=== PATIENT | male | born 1955 | race Caucasian/White ===

== ENCOUNTER 2017-03-21 12:12 | Observation (INO) | payer OTHER ==
[~2017-03-21] VITALS: Ht 180.3 cm; Wt 77.6 kg
[~2017-03-21 12:12] MED LIST: ASPI81TA2 PO; ATEN100T4 PO; FAMO20TA PO; FELO10TA34 PO; FLC50T PO; HYDR25TA4 PO; LISI10TA PO; NAPR220C11 PO
[2017-03-21 12:15] VITALS: BP 181/113; PULSE 63; RESP 16; O2SAT 98
[2017-03-21 12:45] VITALS: BP 165/98; PULSE 86; RESP 17; O2SAT 96
--- NOTE | 2017-03-21 12:51 | ED.REPORT ---
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 The patient also reports intermittent chest pressure that developed today, rated 9/10 on arrival. Associated symptoms include weakness, fatigue, dizziness, nausea, and SOB. He denies other symptoms. The patient has had similar symptoms in the past. Nursing Notes Stated Complaint: HEART ISSUE Chief Complaint: Dysrhythmia/Cardiac Nursing Notes Reviewed: Yes Allergies: Coded Allergies: No Known Allergies (Verified , 09/09/13) Scheduled Aspirin (Aspirin) 81 Mg Tablet 81 MG PO QAM Atenolol (Atenolol) 100 Mg Tablet 100 MG PO QAM Atorvastatin (Lipitor) 20 Mg Tablet 20 MG PO DAILY Flecainide Acetate (Flecainide Acetate) 100 Mg Tablet 100 MG PO BID Gabapentin (Gabapentin) 300 Mg Capsule 300 MG PO TID Lisinopril / HCTZ 20-25 mg (Lisinopril / HCTZ 20-25 mg) 1 Each Tablet 1 TAB PO DAILY Scheduled PRN Sildenafil Citrate (Viagra) 50 Mg Tablet 1 TAB PO DAILY PRN PRN ERECTILE DYSFUNCTION General Time Seen by MD: 12:51 Chief Complaint Other (Atrial Flutter) Hx Obtained From: Patient Arrived By: Walk-in Sudden in Onset?: Yes Onset Occurred: 2 days ago Symptom Duration: Since onset Location: : Chest left: Chest right Quality: Painful, Pressure Severity: Current: Moderate Severity: Maximum: Moderate Pertinent Negative: Relieved by nothing Context Related History: Reports: Arrhythmia, Hypertension Recent Healthcare: No recent doctor visit Similar Sx Previous: Yes Past Medical History Past Medical History 1. History of cavotricuspid isthmus dependent atrial flutter with radiofrequency ablation in 2008. Subsequent study on June 30, 2012, was inconclusive, but was repeated after patient was off beta blockers and was repeated on September 15, 2012. At that time, the supraventricular tachycardia was unable to be induced, and at that time, the plan was to get a stress test and then start patient on flecainide if that was low risk, which it was, and the patient was started on flecainide. The patient had a myocardial perfusion scan on August 21, 2012, which was unrevealing, and an unremarkable echo on June 30, 2012. 2. Hypertension. 3. Obstructive sleep apnea, on CPAP. 4. Hyperlipidemia Past Surgical History Appendectomy Right wrist and shoulder surgeries in the past. Smoking History Unknown if Ever Smoker Social History Patient drinks heavily approximately once a month Other Social History: Good social support Ambulatory Status Independent Review of Systems Review of Systems Note: + Atrial flutter Constitutional: Reports: Fatigue, Weakness - generalized Respiratory: Reports: Shortness of breath, Denies: Non-productive cough Cardiovascular: Reports: Chest pain (Pressure) GI: Reports: Nausea, Denies: Diarrhea, Vomiting Neurologic: Reports: Dizziness Complete sys rev & neg: except as marked. Physical Exam Initial Vital Signs Vital Signs (First) Date Time Temp Pulse Resp B/P Pulse Ox O2 Delivery O2 Flow Rate FiO2 03/21/17 12:15 36.6 63 16 181/113 98 Room Air 03/21/17 12:45 Initial VS: Reviewed Head / Eyes: Atraumatic, Normocephalic ENT: Conjunctiva normal, No scleral icterus Neck: Supple, Full range of motion Skin: Warm, Dry, No cyanosis Neurologic: Alert, Oriented, Nonfocal Psychiatric: Mood/affect normal, Behavior normal, Normal thought content General/Constitutional: Awake, Alert Respiratory / Chest: Breath sounds NL, Breath sounds = bilat, No respiratory distress Cardiovascular: Heart rate NL, Heart sounds NL Heart Rate / Rhythm: Positive: Irregular rhythm Abdomen: Soft, Non-tender Interpretation & Diagnostics Lab Results Interpretation Result Diagram: 03/21/17 1233 03/21/17 1233 Test 03/21/17 12:33 White Blood Count 11.1th/mm3 (3.8-10.1) Red Blood Count 5.89mil/mm3 (4.40-5.80) Hemoglobin 17.7g/dL (13.8-17.2) Hematocrit 51.8% (41.0-50.0) Mean Corpuscular Volume 87.9fL (81-100) Mean Corpuscular Hemoglobin 30.1pg (27.0-35.0) Mean Corpuscular Hemoglobin Concent 34.2% (32.0-37.0) Red Cell Distribution Width 14.4% (12.3-15.4) Platelet Count 254bil/L (150-400) Neutrophils (%) (Auto) 75.3% (40-74) Lymphocytes (%) (Auto) 15.7% (14-46) Monocytes (%) (Auto) 6.2% (4-12) Eosinophils (%) (Auto) 2.0% (0-5) Basophils (%) (Auto) 0.5% (0-3) Urine Color Dark yellow (YELLOW) Urine Appearance Clear (CLEAR,HAZY) Urine pH 6.0 (5.0-8.0) Urine Specific Prole 1.025 (1.003-1.035) Urine Protein 30mg/dL (NEG,TRACE) Urine Glucose (UA) Negativemg/dL (NEGATIVE) Urine Ketones Negativemg/dL (NEGATIVE) Urine Occult Blood Negative (NEGATIVE) Urine Nitrite Negative (NEGATIVE) Urine Bilirubin Negative (NEGATIVE) Urine Urobilinogen Normalmg/dL (NORMAL) Urine Leukocyte Esterase Negative (NEGATIVE) Urine RBC 0-2/hpf (0-2) Urine WBC 0-5/hpf (0-5) Urine Epithelial Cells Occasional/hpf (NONE-MOD) Urine Crystals Oxalic acid crystals (NONE Urine Bacteria None/hpf (NONE-FEW) Urine Hyaline Casts Occasional/lpf (NONE) Urine Granular Casts Occasional (NONE SEEN) Urine Waxy Casts None seen (NONE SEEN) Urine Red Blood Cell Casts None seen (NONE SEEN) Urine White Blood Cell Casts None seen (NONE SEEN) Urine Mucus Present (None Seen) Urine Trichomonas None seen (NONE SEEN) Urine Yeast None (NONE SEEN) Urinalysis Comment None Urine Culture Reflexed Not indicated Hold Urine Received (Received) Sodium Level 139mEq/L (134-144) Potassium Level 4.2mEq/L (3.5-5.2) Chloride Level 103mEq/L (97-108) Carbon Dioxide Level 21mmol/L (18-29) Blood Urea Nitrogen 23mg/dL (8-27) Creatinine 0.85mg/dL (0.76-1.27) Estimat Glomerular Filtration Rate 97mL/min (>59) Glucose Level 108mg/dL (60-99) Calcium Level 9.5mg/dL (8.5-10.1) Magnesium Level 2.1mg/dL (1.6-2.6) Total Bilirubin 0.6mg/dL (0.0-1.2) Aspartate Amino Transf (AST/SGOT) 23U/L (0-50) Alanine Aminotransferase (ALT/SGPT) 20U/L (0-44) Alkaline Phosphatase 81U/L (25-160) Total Protein 7.4g/dL (6.4-8.4) Albumin 4.3g/dL (3.4-5.0) Alcohols < 10mg/dL (0-10) ECG Interpretation ECG Interpretation: Atrial fibrillation rate 85 Time: 12:29 Interpreted by: ED physician ECG Interpretation: Atrial flutter rate 91 Patient is now pain free Time: 13:05 Interpreted by: ED physician X-Ray Chest Interpretation Chest Xray Interpretation: IMPRESSION: No acute cardiopulmonary abnormality Dictated by: Romulo Case M.D. on 03/21/2017 at 13:12 View: Portable, 1 view Interpretation / Wet Read by: Interpret - Radiologist Re-Eval/Medical Decision Med Decision/Clinical Course 61-year-old male history of atrial flutter status post ablation, atrial fibrillation, hypertension, hyperlipidemia presenting with 2 days of feeling like he is in atrial flutter. He had some alcohol several days ago and has felt like this ever since. He is not on chronic anticoagulation. Arrival he is in atrial fibrillation rate controlled. On arrival he started complaining of 9 of 10 substernal chest pain which resolved with nitroglycerin. Discussed with cardiology who saw the patient recommended admission. Given aspirin. Admit, trend EKGs and troponins. Follow-up cardiology recs. Source of Hx: Old records Time of Eval: 15:05 Patient Status: Condition improved Re-Evaluation/Progress Note: Discussed with patient x-ray and lab results, diagnosis, and plan for admit. Patient agrees with plan for care and all questions were addressed. Consultation #1: Referral / Consult Name: Miri Lainez MD Consulted With: Cardiology Call Returned at: 13:37 Mobile Game Engineer: Will see patient, Agrees with eval, Agrees with plan Consultation #2: Referral / Consult Name: Miri Lainez MD Consulted With: Cardiology Call Returned at: 14:15 Mobile Game Engineer: Agrees with eval, Agrees with plan Note: Recommends admit. Consultation #3: Referral / Consult Name: Lars Pierson DO Consulted With: Hospitalist Call Returned at: 15:13 Mobile Game Engineer: Agrees with eval, Agrees with plan, Accepts admit Counseled Regarding: Diagnosis, Lab results, Need for admission Discharge & Departure Primary Impression: Chest pain Chest pain type: chest pain due to myocardial ischemia Ischemic chest pain type: unstable angina pectoris Qualified Code: I20.0 - Unstable angina Additional Impression: Atrial fibrillation Atrial fibrillation type: paroxysmal Qualified Code: I48.0 - Paroxysmal atrial fibrillation Disposition: ADMITTED TO HOSPITAL Discharge Condition All VS Reviewed: Yes Condition: Improved Referrals: OTHER,PHYSICIAN (PCP) Crit Care Except Billable Proc Time Spent: 30-74 minutes (40) Services Performed: Patient management by me, Time spent at bedside, Reviewing test results, Reviewing imaging, Discussing patient care, Documentation in record Scribe Attestation Portions of this note were transcribed by Beti Avila. I, Dr. Robertson, personally performed the history, physical exam, and medical decision-making; I reviewed and confirmed the accuracy of the information in the transcribed note. Signed by: Anita Alejandra, 03/21/2017, 15:18 Garrison Robertson MD March 21, 2017 12:51 BETI AVILA March 21, 2017 13:05
[2017-03-21 12:55] LABS: BASOPHILS % (AUTO) 0.5 % (0-3); MONOCYTES % (AUTO) 6.2 % (4-12); Mean Corpuscular Hemoglobin 30.1 pg (27.0-35.0); Mean Corpuscular Volume 87.9 fL (81-100); NEUTROPHILS % (AUTO) 75.3 % (40-74); Platelet Count 254 bil/L (150-400)
[2017-03-21] MEDS ORDERED: Ondansetron 2 mg/mL 2 mL Inj ONE (12:56)
[2017-03-21] MEDS ORDERED: Nitroglycerin 2% 1 Gm Ointment TOPICAL ONE ×2 (12:56→14:10)
--- NOTE | 2017-03-21 13:15 | DRSVH ---
PROCEDURE: X-RAY CHEST ONE VIEW, PORTABLE ([id number]) INDICATIONS: chest pain TECHNIQUE: One view of the chest was acquired. COMPARISON: 12/20/2016 FINDINGS: Surgical changes and devices: None. Lungs and pleura: No pleural effusions or pneumothorax. Lungs are clear. Mediastinum: Mediastinal contours appear normal. Heart size is normal. Bones and chest wall: No suspicious bony lesions. Overlying soft tissues appear unremarkable. IMPRESSION: No acute cardiopulmonary abnormality Dictated by: Romulo Case M.D. on 03/21/2017 at 13:12 Approved by: Romulo Case M.D. on 03/21/2017 at 13:13
[2017-03-21 13:21] LABS: TROPONIN T < 0.010 ug/L (0.0-0.011)
[2017-03-21 13:29] LABS: Magnesium 2.1 mg/dL (1.6-2.6)
[2017-03-21 13:30] VITALS: BP 115/89; PULSE 80; RESP 16; O2SAT 96
[2017-03-21] MEDS ORDERED: ATOR20TA PO (13:43)
[2017-03-21] MEDS ORDERED: GABA-502 PO (13:43)
[2017-03-21] MEDS ORDERED: SILD50TA PO (13:43)
[2017-03-21] MEDS ORDERED: LISI1TAB11 PO (13:43)
[2017-03-21] MEDS ORDERED: Ondansetron 2 mg/mL 2 mL Inj IVPUSH ONE (14:10)
[2017-03-21] MEDS ORDERED: ASPI-973 PO (15:00)
[2017-03-21] MEDS ORDERED: FLEC100T2 PO (15:00)
[2017-03-21] MEDS ORDERED: ATEN100T PO (15:00)
[2017-03-21] MEDS ORDERED: Alum-Mag Hydrox-Simeth 30 mL Suspension PO PRN ×2 (15:20→15:35)
[2017-03-21] MEDS ORDERED: Ondansetron 2 mg/mL 2 mL Inj IVPUSH PRN (15:20)
[2017-03-21 15:33] LABS: APPEARANCE,URINE CLEAR (CLEAR,HAZY); COLOR,URINE DARK YELLOW (YELLOW)
[2017-03-21 15:34] LABS: OCCULT BLOOD,URINE NEGATIVE (NEGATIVE); UROBILINOGEN,URINE NORMAL (NORMAL)
--- NOTE | 2017-03-21 15:34 | PCM.HPMED ---
Subjective Date of Service March 21, 2017 Primary Provider: Admitting Physician: Primary Care Physician: Other,Physician Attending Physician: Chief Complaint: Chest pressure and palpitations History of Present Illness: Patient is 59-year-old male past medical history significant for arrhythmia typically atrial flutter status post 1 lesion managed on chronic flecainide therapy in addition to hyperlipidemia hypertension tobacco dependence, presenting to the ER earlier today for greater than 24 hour history of chest palpitations and tightness which he notes in the past have been consistent with an irregular rhythm or flutter pattern. Probably confirm that he was in irregularly irregular rhythm at this time atrial fibrillation, albeit in regular rate. Patient's chest pressure however was concerning especially given cardiac history and risk factors, and so cap inspector Dr. Lainez was consulted and evaluated patient in emergency department. Due to persistent arrhythmia it was thought prudent to bring patient in the hospital for further observation and evaluation of underlying conditions. Recent history includes only 2 drinks earlier on which he notes he does approximately once a month when visiting a friend, this consists of one beer one tequila he denies drinking to excess and states she drank no alcohol prior to or after this. This is generally not an issue during his done so for many years and certainly has not caused this condition in the past. Denies any shortness of breath currently and chest pressure has been resolved with the addition of nitroglycerin glycerin which is right in emergency department denies any sweats or chills at this time. Chest pressure was localized over the sternal region but did not radiate. He additionally denies any dizziness or blurred vision or lightheadedness. Says he was nauseated earlier in the day but now is feeling more hungry. Denies any episodes of emesis. No other acute complaints at this time. Review of Systems: 10 point review of systems was conducted and entirely negative excepting pertinent positives and negatives included above history of present illness Allergies Coded Allergies: No Known Allergies (Verified , 09/09/13) Home Medications Aspirin (Aspirin) 81 Mg Tablet 81 MG PO QAM Atenolol (Atenolol) 100 Mg Tablet 100 MG PO QAM Atorvastatin (Lipitor) 20 Mg Tablet 20 MG PO DAILY Flecainide Acetate (Flecainide Acetate) 100 Mg Tablet 100 MG PO BID Gabapentin (Gabapentin) 300 Mg Capsule 300 MG PO TID Lisinopril / HCTZ 20-25 mg (Lisinopril / HCTZ 20-25 mg) 1 Each Tablet 1 TAB PO DAILY Scheduled PRN Sildenafil Citrate (Viagra) 50 Mg Tablet 1 TAB PO DAILY PRN PRN ERECTILE DYSFUNCTION PMH 1. History of cavotricuspid isthmus dependent atrial flutter with radiofrequency ablation in 2008. Subsequent study on June 30, 2012, was inconclusive, but was repeated after patient was off beta blockers and repeated on September 15, 2012. At that time, the supraventricular tachycardia was unable to be induced, and at that time, the plan was to get a stress test and then start patient on flecainide if that was low risk, which it was, and the patient was started on flecainide. The patient had a myocardial perfusion scan on August 21, 2012, which was unrevealing, and an unremarkable echo on June 30, 2012. 2. Hypertension. 3. Obstructive sleep apnea, on CPAP. 4. Hyperlipidemia Surgical History Appendectomy Right wrist and shoulder surgeries in the past. Hernia repair, inguinal right-sided. Family History Denies any significant family history of arrhythmia Social History Hx Alcohol Use: Yes (beer occ.) Hx Substance Use: No Hx Tobacco Use: Yes Smoking Status: Unknown if Ever Smoker Exam Vital Signs Vital Sign - Last Date Time Temp Pulse Resp B/P Pulse Ox O2 Delivery O2 Flow Rate FiO2 03/21/17 13:30 80 16 115/89 96 03/21/17 12:15 36.6 General: Alert, Oriented X3, Cooperative, No Acute Distress Eyes: PERRLA, EOMI Mouth: Mucous Membr Moist/[place] Neck: Supple, Other (no JVD) Chest & Lungs: Clear to auscultation & percussion Cardiovascular: Other (irregular rhythm with a regular rate. No murmurs rubs or gallops auscultated) Abdomen: Non-tender, Non-distended Extremities: No cyanosis/clubbing/edma bilat Skin: Other (his stain by oil with multiple abrasions) Neurological: Grossly Neurologically Intact Lab and Diagnostics Result Diagram: 03/21/17 1233 03/21/17 1233 Assessment & Plan 61-year-old male past medical history significant for atrial flutter typically well controlled with flecainide, presenting following an episode of acute chest pain in the setting of alcohol binge currently resolved in stable condition admitted for further evaluation as per cardiology recommendation. 1. Chest pain - Patient has known cardiac disease, but negative troponin and stable EKG speaks against an acute coronary process - Nonetheless given risk factors and recommendations of on-call cap inspector, Dr. Lainez, patient will be admitted for further evaluation at this time - Plan to continue trending troponin values, patient will remain on continuous telemetry monitoring - Further evaluation to be conducted as per cardiology recommendations, which are currently pending. - Continue home medications at this time in addition to nitroglycerin glycerin sublingual as needed for chest pain should recur. - May consider initiation of warfarin therapy, in addition to cardioversion based on patient's condition overnight and results of echocardiogram. 2. Atrial flutter/atrial fibrillation - Patient is currently stable hemodynamically. - Persistent irregularly irregular rhythm, noted to be atrial fibrillation on EKG, which is rate controlled nonetheless. - We will continue all medications again and monitor on continuous telemetry. 3. Ethanol abuse: States he drinks alcohol but not excess. Based on amount of alcohol reported he is at no risk of withdrawal. NO blood studies are consistent with this either ; ei no Macrocytosis, normal liver functions. Pain Evaluation: Adequate Pain Control VTE Mechanical Devices: Intermittant Pneumatic CD Resuscitation Status: CPR: Attempt Resuscitation Time spent 55 minutes Lars Pierson DO March 21, 2017 15:34
[2017-03-21] MEDS ORDERED: Senna-Docusate 8.6-50 mg Tablet PO PRN (15:35)
[2017-03-21] MEDS ORDERED: Polyethylene Glycol (PEG) 17 Gm Powder PO PRN (15:35)
[2017-03-21 16:50] VITALS: BP 188/111; PULSE 72; PULSE 80; RESP 20; O2SAT 98
--- NOTE | 2017-03-21 17:23 | NUR ---
ED to [facility] Pt arrived via wheelchair escorted by Saritha PALACIOS ED. Pt BP 188/111, P 70. aware and in room. Pt denies chest pressure at this time, states he can feel something but nothing like it was upon admittance. Care continues.
[2017-03-21 20:34] VITALS: BP 123/82; PULSE 62; RESP 18; O2SAT 96
[2017-03-22] VITALS (13 sets, daily range): BP systolic 122–152; BP diastolic 75–97; PULSE 66–85; RESP 12–20; O2SAT 93–97
--- NOTE | 2017-03-22 02:21 | NUR ---
HEADACHE Pt c/o headache. VS obtained, BP better controlled. Nitro paste removed, d/t possible medication side effect. MD called for prn tylenol, orders rec'd, dose given. At reassessment, pt states, "it's letting up." Pt asked to call RN if symptoms do not resolve. Pt sleeping upon later assessment. Continue to monitor. Call light in reach. Intentional rounding.
--- NOTE | 2017-03-22 02:42 | CONS ---
[address] [address] CONSULTATION REPORT PATIENT: BINTA BUITRAGO : 1955 MR#: [id number] ADMIT: 03/21/2017 JOB ID: [id number] DATE OF SERVICE: 03/21/2017 CHIEF COMPLAINT: Flutter. HISTORY OF PRESENT ILLNESS: The patient is a 61-year-old man with two day history of palpitation associated shortness of breath. He also developed a chest discomfort improved with sublingual nitroglycerin and nitro patch. Cardiology is consulted to assist with management. PAST MEDICAL HISTORY: 1. Paroxysmal atrial flutter, status post cava tricuspid flutter ablation, December 2008. 2. EP study June 2012. During the EP study, SVT was noted but could not be induced and the previously deployed flutter ablation line was intact. 3. Another EP study September 15, 2012, once again the SVT was briefly entrained, but could not be entrained for sustained amount of time and no ablation was performed. REVIEW OF SYSTEMS: Significant for 60 pound weight loss that was intentional, occurred and gradually Otherwise, 10 point review is negative. SOCIAL HISTORY: The patient is . He is a former smoker. He drinks one beer and one Tequila beverage per month when he goes to club meetings and he drinks 10 cups of coffee every day. FAMILY HISTORY: No pacemaker. No AFib. ALLERGIES: No known drug allergies. HOME MEDICATIONS: 1. Aspirin 81 mg daily. 2. Lipitor 20 mg daily. 3. Albuterol 100 mg daily. 4. Flecainide 100 mg twice a day. 5. Lisinopril/HCTZ 20/25. 6. Gabapentin 300 mg 3 times a day. PHYSICAL EXAMINATION: A well-nourished man in no apparent distress. Eyes: No scleral icterus. Neck is supple. No lymphadenopathy. No carotid bruits. Heart normal S1, S2. No murmurs, rubs or gallops. Lungs: Clear to auscultation anteriorly. Abdomen is soft, positive bowel sounds. No hepatosplenomegaly. Extremities: Warm, well perfused. No clubbing, cyanosis or edema. Skin: No rashes or lesions. LABORATORIES: Reviewed. Normal platelet count. Creatinine 0.9, potassium , magnesium 2.1. Troponin is negative. EKG with AFib 85 beats per minute, left axis deviation and left anterior fascicular block and poor R-wave progression in precordial leads. ASSESSMENT AND PLAN: 1. A 62-year-old man with paroxysmal atrial flutter, paroxysmal atrial fibrillation documented during hospitalization in 2012 and basically two additional attempts at ablation for supraventricular tachycardia which were unsuccessful. 2. Recurrence of atrial fibrillation. 3. Medical management for atrial fibrillation. Recommend another 200 mg of flecainide dose to see if normal sinus rhythm cam be achieved. N.p.o. after midnight. If normal sinus rhythm cannot be restored chemically, we will recommend transesophageal echocardiogram followed by cardioversion. The onset of atrial fibrillation was at 2 a.m. on . 4. Anticoagulation: We will recommend anticoagulation at least four months after cardioversion and achieved, afterwards given relatively low CHADS score, he can be on aspirin if that is what he prefers. His [id number] Vasc score is 1 with hypertension. 5. Structural evaluation: Recommend echocardiogram to evaluate wall motion and left ventricular systolic function. 6. Hypotension. Continue lisinopril, hydrochlorothiazide. 7. Screening for atrial fibrillation triggers: Recommend the patient try to reduce his caffeine intake from 10 cups a day to maybe 5 cups a day. I recommend that we check his TSH and free T4. 8. Hyperlipidemia. We will recheck lipids in a.m. Thank you very much for the opportunity to evaluate him. BERNICE
[2017-03-22 06:24] LABS: BASOPHILS % (AUTO) 0.6 % (0-3); EOSINOPHILS % (AUTO) 3.5 % (0-5); MONOCYTES % (AUTO) 8.3 % (4-12); Mean Corpuscular Hemoglobin 30.3 pg (27.0-35.0); Mean Corpuscular Volume 87.6 fL (81-100); NEUTROPHILS % (AUTO) 65.8 % (40-74); Platelet Count 230 bil/L (150-400)
[2017-03-22] MEDS ORDERED: Methohexital 10 mg/mL 50 mL Inj IV ONE ×2 (10:45→11:30)
[2017-03-22] MEDS ORDERED: fentaNYL-PF 50 mCg/mL 2 mL Inj IVPUSH ONE (10:50)
[2017-03-22] MEDS ORDERED: Atropine 1 mg/10 mL (Code) Syringe ONE (11:22)
--- NOTE | 2017-03-22 12:32 | DRSVH ---
Study location field not populated with appropriate location Echocardiogram Report Name: BINTA BUITRAGO Date: 0 03/22/2017 [facility] Gender: Male : 1955 Age: 61 yrs Performed By: YUSRAO Referring Physician: CARI LAINEZ Interpretation Summary afib with controlled rate Normal LV size and wall thickness; grossly normal wall motion and LV systolic function. No evidence of TANIA thrombus Mild MR; otherwise no valvular abnormalities. No prior YEFRI available for comparison Reading Physician:12:32 PM
--- NOTE | 2017-03-22 12:35 | NUR ---
YEFRI/Cardioversion: YEFRI performed per Dr. Lainez at 1145, pt sedated with versed and fentanyl. RT, MD, and RN at bedside. Cardioversion 1 bi-phasic shock 200J at 1154, SR obtained with 1 shock, pt sedated pre-cardioversion with brevital (see sedation flow sheet). VSS post procedure, RN at bedside for observation. Pt awake and alert and talking, appropriate. Tele SR 60-70's, no c/o pain. Pt taking on phone with family. Primary RN aware of conversion to SR.
[2017-03-22] MEDS ORDERED: APIX5TAB PO (13:03)
[2017-03-22] MEDS ORDERED: FLEC100T2 PO (13:03)
--- NOTE | 2017-03-22 13:19 | PCM.DC.MED ---
Discharge Summary Date of Service March 22, 2017 Dates of Hospitalization Date of Hospital Admission March 21, 2017 at 15:57 Date of Discharge: March 22, 2017 Providers: Admitting Physician: Lars Mccormack DO Primary Care Physician: Other,Physician Attending Physician: Lars Mccormack DO Diagnosis at Time of Discharge Diagnosis at Time of Discharge Atrial fibrillation, s/p cardioversion. Resolved Consultations Cardiology, Dr. Miri Lainez. Procedures Other Diagnostics DATE OF SERVICE: 03/22/2017 POSTOPERATIVE DIAGNOSIS(ES): PREOPERATIVE DIAGNOSIS(ES): SURGEON: Miri Lainez MD. PROCEDURES PERFORMED: Direct-current cardioversion and transesophageal echocardiogram. INDICATION: AFib with chest pain. METHOD: Following informed consent, patient was sedated with Versed and fentanyl. A YEFRI was performed. No evidence of left atrial appendage thrombus was noted 200 joules synchronized energy was delivered. Normal sinus rhythm was restored. No complications in the immediate postprocedure. Thank you very much for the opportunity to participate in this patient's care. Miri Lainez MD 03/22/17 0886 Brief History Patient is 59-year-old male past medical history significant for arrhythmia typically atrial flutter status post 1 lesion managed on chronic flecainide therapy in addition to hyperlipidemia hypertension tobacco dependence, presenting to the ER earlier today for greater than 24 hour history of chest palpitations and tightness which he notes in the past have been consistent with an irregular rhythm or flutter pattern. Probably confirm that he was in irregularly irregular rhythm at this time atrial fibrillation, albeit in regular rate. Patient's chest pressure however was concerning especially given cardiac history and risk factors, and so health information managers Dr. Lainez was consulted and evaluated patient in emergency department. Due to persistent arrhythmia it was thought prudent to bring patient in the hospital for further observation and evaluation of underlying conditions. Recent history includes only 2 drinks earlier on which he notes he does approximately once a month when visiting a friend, this consists of one beer one tequila he denies drinking to excess and states she drank no alcohol prior to or after this. This is generally not an issue during his done so for many years and certainly has not caused this condition in the past. Denies any shortness of breath currently and chest pressure has been resolved with the addition of nitroglycerin glycerin which is right in emergency department denies any sweats or chills at this time. Chest pressure was localized over the sternal region but did not radiate. He additionally denies any dizziness or blurred vision or lightheadedness. Says he was nauseated earlier in the day but now is feeling more hungry. Denies any episodes of emesis. No other acute complaints at this time. Hospital Course 1. Chest pain: ACS essentially ruled out, chest pain appeared related to arrhythmia described below. Pain resolved by hospital day #1 at time of discharge. 2. Atrial flutter/atrial fibrillation: Very much appreciate the consultation and assistance from Dr. Lainez. Pt failed medical cardioversion with higher dose of Flecainide, but was successfully cardioverted manually following YEFRI which was negative for intracardiac thrombus. Pt responded well, and subsequently assumed a normal cardiac rhythm, which was sustained through time of discharge. Plan to continue Flecainide at increased dosage of 150mg PO BID, with initiation of Eliquis in place of Aspirin which was discontinued. All other medications were continued unchanged. 3. Ethanol abuse: States he drinks alcohol but not excess. Based on amount of alcohol reported he is at no risk of withdrawal. NO blood studies are consistent with this either ; ei no Macrocytosis, normal liver functions. None the less, given comorbid cardiac condition, pt was counselled to limit intake to 1 drink/day max. Reduction of caffeine intake as well was encouraged, which can also exacerbate arrhythmia. Exam Vital Signs (Last) Date Time Temp Pulse Resp B/P Pulse Ox O2 Delivery O2 Flow Rate FiO2 03/22/17 12:45 68 15 152/92 97 Room Air 03/22/17 12:30 2.00 03/22/17 09:11 36.8 Exam General: Alert, Oriented X3, Cooperative, No Acute Distress Eyes: PERRLA, EOMI Mouth: Mucous Membrane Moist/Hume Neck: Supple, Other (no JVD) Chest & Lungs: Clear to auscultation & percussion Cardiovascular: now regular rhythm with a regular rate. Abdomen: Non-tender, Non-distended Extremities: No cyanosis/clubbing/edema bilat Skin: His stain by oil with multiple abrasions Neurological: Grossly Neurologically Intact Test 03/21/17 12:33 03/21/17 20:15 03/22/17 06:10 Urine Color Dark yellow (YELLOW) Urine Appearance Clear (CLEAR,HAZY) Urine pH 6.0 (5.0-8.0) Urine Specific Cannon 1.025 (1.003-1.035) Urine Protein 30mg/dL (NEG,TRACE) Urine Glucose (UA) Negativemg/dL (NEGATIVE) Urine Ketones Negativemg/dL (NEGATIVE) Urine Occult Blood Negative (NEGATIVE) Urine Nitrite Negative (NEGATIVE) Urine Bilirubin Negative (NEGATIVE) Urine Urobilinogen Normalmg/dL (NORMAL) Urine Leukocyte Esterase Negative (NEGATIVE) Urine RBC 0-2/hpf (0-2) Urine WBC 0-5/hpf (0-5) Urine Epithelial Cells Occasional/hpf (NONE-MOD) Urine Crystals Oxalic acid crystals (NONE Urine Bacteria None/hpf (NONE-FEW) Urine Hyaline Casts Occasional/lpf (NONE) Urine Granular Casts Occasional (NONE SEEN) Urine Waxy Casts None seen (NONE SEEN) Urine Red Blood Cell Casts None seen (NONE SEEN) Urine White Blood Cell Casts None seen (NONE SEEN) Urine Mucus Present (None Seen) Urine Trichomonas None seen (NONE SEEN) Urine Yeast None (NONE SEEN) Urinalysis Comment None Urine Culture Reflexed Not indicated Hold Urine Received (Received) Hemoglobin A1c 5.6% (4.8-5.6) Magnesium Level 2.1mg/dL (1.6-2.6) Total Bilirubin 0.6mg/dL (0.0-1.2) Aspartate Amino Transf (AST/SGOT) 23U/L (0-50) Alanine Aminotransferase (ALT/SGPT) 20U/L (0-44) Alkaline Phosphatase 81U/L (25-160) Total Protein 7.4g/dL (6.4-8.4) Albumin 4.3g/dL (3.4-5.0) Alcohols < 10mg/dL (0-10) Troponin T < 0.010ug/L (0.0-0.011) White Blood Count 9.7th/mm3 (3.8-10.1) Red Blood Count 5.91mil/mm3 (4.40-5.80) Hemoglobin 17.9g/dL (13.8-17.2) Hematocrit 51.8% (41.0-50.0) Mean Corpuscular Volume 87.6fL (81-100) Mean Corpuscular Hemoglobin 30.3pg (27.0-35.0) Mean Corpuscular Hemoglobin Concent 34.6% (32.0-37.0) Red Cell Distribution Width 14.0% (12.3-15.4) Platelet Count 230bil/L (150-400) Neutrophils (%) (Auto) 65.8% (40-74) Lymphocytes (%) (Auto) 21.5% (14-46) Monocytes (%) (Auto) 8.3% (4-12) Eosinophils (%) (Auto) 3.5% (0-5) Basophils (%) (Auto) 0.6% (0-3) Sodium Level 137mEq/L (134-144) Potassium Level 4.5mEq/L (3.5-5.2) Chloride Level 98mEq/L (97-108) Carbon Dioxide Level 25mmol/L (18-29) Blood Urea Nitrogen 20mg/dL (8-27) Creatinine 0.85mg/dL (0.76-1.27) Estimat Glomerular Filtration Rate 97mL/min (>59) Glucose Level 95mg/dL (60-99) Calcium Level 9.1mg/dL (8.5-10.1) Triglycerides Level 96mg/dL (0-149) Cholesterol Level 145mg/dL (100-199) LDL Cholesterol, Calculated 86.800mg/dL (0-99) VLDL Cholesterol 19.200mg/dL HDL Cholesterol 39mg/dL (>39) Cholesterol/HDL Ratio 3.72 (0.0-4.4) Discharge Medications Discharge Medications Apixaban (Eliquis) 5 Mg Tablet 5 MG PO BID Prescribed by: LARS MCCORMACK DO Atenolol (Atenolol) 100 Mg Tablet 100 MG PO QAM (Reported) Atorvastatin (Lipitor) 20 Mg Tablet 20 MG PO DAILY (Reported) Flecainide Acetate (Flecainide Acetate) 100 Mg Tablet 150 MG PO BID Prescribed by: LARS MCCORMACK DO Gabapentin (Gabapentin) 300 Mg Capsule 300 MG PO TID (Reported) Lisinopril / HCTZ 20-25 mg (Lisinopril / HCTZ 20-25 mg) 1 Each Tablet 1 TAB PO DAILY (Reported) As needed Sildenafil Citrate (Viagra) 50 Mg Tablet 1 TAB PO DAILY PRN PRN ERECTILE DYSFUNCTION (Reported) Followup Plan Disposition: Home in stable condition Discharge Diet: Low fat, Low Sodium, Heart Healthy, Other (Limit beer and caffiene intake as able. ) Discharge Activity: No restrictions Follow-up Provider: Mundo Mercado MD Follow-up with PCP in: 1 week Time spent 45 minutes copies to: Mundo Mercado MD, Benjamin P DO March 22, 2017 13:19
--- NOTE | 2017-03-22 13:28 | PROCED ---
[address] [address] PROCEDURE NOTE PATIENT: BINTA BUITRAGO : 1955 MR#: [id number] ADMIT: 03/21/2017 JOB ID: [id number] DATE OF SERVICE: 03/22/2017 POSTOPERATIVE DIAGNOSIS(ES): PREOPERATIVE DIAGNOSIS(ES): SURGEON: Miri Lainez MD. PROCEDURES PERFORMED: Direct-current cardioversion and transesophageal echocardiogram. INDICATION: AFib with chest pain. METHOD: Following informed consent, patient was sedated with Versed and fentanyl. A YEFRI was performed. No evidence of left atrial appendage thrombus was noted 200 joules synchronized energy was delivered. Normal sinus rhythm was restored. No complications in the immediate postprocedure. Thank you very much for the opportunity to participate in this patient's care.
--- NOTE | 2017-03-22 13:34 | PCM.DIMED ---
Discharge Instructions Date of Service March 22, 2017 Dates of Hospitalization March 21, 2017 at 15:57 Discharge Diagnosis Discharge Diagnosis Atrial fibrillation, s/p cardioversion. Resolved Diet No restrictions, Other (Limit caffeine and alcohol consumption to 1 cup per day. ) Activity No restrictions Call your provider Chest pain Patient Instructions Follow-up Provider: Miri Lainez MD Follow-up with PCP in: 2 weeks Lars Pierson DO March 22, 2017 13:34
--- NOTE | 2017-03-22 14:14 | NUR ---
SW - Brief Note/Discharge Data: Pt is a 61 y/o male admitted on 03/21/17 for chest pain, atrial fibrillation per H&P. EMR reviewed. Pt's insurance is [employer] and PCP is [facility]. Readmit risk score is 1 - no risk. Per EMR cardioversion was successful an dpt is now medically cleared for discharge, is up and independent in room. INOCENTE met with pt at bedside to confirm discharge plan. Pt resides with in [place] and is independent at baseline. INOCENTE checked in with pt re: alcohol use per H&P and pt denied any issue with alcohol, declined further assessment. Pt to discharge home via with no needs identified. Assessment: Pt who is independent at baseline Plan: Pt to discharge home via POV with no needs identified. SHAISTA Cole
--- NOTE | 2017-03-22 14:56 | PROG NOTE ---
[address] [address] PROGRESS NOTE PATIENT: BINTA BUITRAGO : 1955 MR#: [id number] ADMIT: 03/21/2017 JOB ID: [id number] DATE: 03/22/2017 CHIEF COMPLAINT: Chest pain. SUBJECTIVE: This morning patient had no complaints other than being hungry. He underwent uneventful YEFRI and cardioversion. Normal sinus rhythm was restored and he is ready to be discharged. OBJECTIVE: Vital signs: Temperature 36.8, blood pressure 122/90 up to 152/93, pulse 66 up to 97 beats per minute. He is satting 93%-97% on 2 liters nasal cannula. Well-nourished man, no apparent distress. Eyes: No scleral icterus. He has poor dentition. Neck: Supple. No lymphadenopathy. Heart: Normal S1, S2. No murmurs. Lungs: Clear to auscultation anteriorly. Abdomen: Soft, positive bowel sounds. No hepatosplenomegaly. Extremities: Warm, well perfused. No clubbing, cyanosis or edema. Skin: No rashes or lesions. HOME MEDICATIONS: To be discharged home on include: 1. Apixaban 5 mg twice a day. 2. Atenolol 100 mg daily. 3. Flecainide, dose increased from 100 mg twice a day up to 150 mg twice a day. 4. HCTZ/lisinopril combo 25/20 mg 1 tablet by mouth daily. 5. Gabapentin 300 mg 3 times a day. 6. Aspirin has been discontinued. I encouraged the patient to avoid the triggers for his atrial fibrillation. Specifically I encourage the patient to avoid alcohol drinking and limit to no more than one beverage at a time. I encouraged him to reduce his consumption of caffeine. He, at this moment in time, drinks about 10 cups of coffee every day and some days even more. I encouraged him to work on cutting that in half if possible. Behind the scenes, we will schedule him to see Dr. Mercado to discuss antiarrhythmic medication adjustments. Thank you very much for the opportunity to evaluate this patient.
--- NOTE | 2017-03-22 15:19 | NUR ---
Discharge Pt discharged home with via private vehicle. Pt verbalized understanding of discharge and new Rx instructions, personal belongings accounted for and left with pt. Pt alert and oriented x 5, opted to walk out vs wheelchair, steady gait and denies pain or discomfort.
== END 2017-03-22 15:19 | disposition home or self-care (01) ==
LOC: SED 12:12 → MPC 15:57
PROVIDERS: ADMIT Family Medicine; ATTEND Family Medicine
DX: I48.0 Paroxysmal atrial fibrillation (principal); R07.9 Chest pain, unspecified; Z98.890 Other specified postprocedural states; G47.33 Obstructive sleep apnea (adult) (pediatric); I10 Essential (primary) hypertension; E78.5 Hyperlipidemia, unspecified; Z79.899 Other long term (current) drug therapy; Z79.82 Long term (current) use of aspirin; I48.92 Unspecified atrial flutter; Z87.891 Personal history of nicotine dependence; F10.10 Alcohol abuse, uncomplicated
CPT/HCPCS: 36415; 71010; 80048; 80053; 80061; 81000; 83036; 83735; 84484; 85025; 92960; 93005; 96374; 99291; C8925; G0378; G0480; J1650; J2250; J2405; J3010